=== PATIENT | male | born 1960 | race Caucasian/White ===

== ENCOUNTER 2022-01-03 14:08 | Observation (INO) ==
[2022-01-03] MEDS: NS 1,000 ML IV 1,000 ML IV SCH (16:35)
[2022-01-03] MEDS: NovoLIN R (or HumuLIN R) SC PRN ×2 (16:36→21:26)
[2022-01-03 16:45] LABS: BASOPHILS % (AUTO) 0.7 % (0.2-1.0); EOSINOPHILS # (AUTO) 0.1 x10^3/uL (0.0-0.2); HEMATOCRIT 44.4 % (42.0-54.0); HEMOGLOBIN 15.2 g/dL (13.5-18.0); LYMPHOCYTES # (AUTO) 1.8 X10^3/uL (1.3-2.9); LYMPHOCYTES % (AUTO) 26.6 % (21.0-51.0); MEAN CORPUSCULAR HEMOGLOBIN 30.7 pg (27.0-34.0); MEAN CORPUSCULAR HGB CONC 34.3 g/dL (33.0-35.0); MEAN CORPUSCULAR VOLUME 89.6 fL (80.0-100.0); MEAN PLATELET VOLUME 8.5 fL (7.4-11.0); MONOCYTES # (AUTO) 0.6 x10^3/uL (0.3-0.8); MONOCYTES % (AUTO) 9.4 % (0.0-13.0); NEUTROPHILS # (AUTO) 4.1 x10^3/uL (2.2-4.8); NEUTROPHILS % (AUTO) 62.3 % (42.0-75.0); RED BLOOD COUNT 4.95 X10^6/uL (4.7-6.0); RED CELL DISTRIBUTION WIDTH 13.7 % (11.6-16.5); WHITE BLOOD COUNT 6.6 X10^3/uL (3.6-10.0)
[2022-01-03 16:48] LABS: HEMOGLOBIN A1C 10.9 %
--- NOTE | 2022-01-03 17:08 | DR.H&P ---
H&P - History & Physical for Day of: H&P Date: 01/03/22 - Chief Complaint Chief Complaint: generalized weakness, uncontrolled DM - History of Present Illness History of Present Illness: Patient is a 61 year old male that is a direct admit from Dr. Marcelo's office secondary to generalized weakness and uncontrolled DM. Patient reports that he was discharged from [facility] last due to same complaints. Reports that he has been unable to control his BS at home. States that it ranges in the 400's. In office FSBS is noted to be 417. Denies recent falls but reports severe bilateral lower extremity weakness. States that BP has been stable. INR in office is 1.9. Will admit for further evaluation. - Past Medical History Past Medical History: Coronary Artery Disease, Diabetes, Dyslipidemia, GERD, Hypertension, Hypothyroidism - Past Surgical History Surgical History: Angioplasty/Stents - Family History Family Medical History: Coronary Artery Disease - Social History Alcohol Use: None Drug Use: None - Medications Home Medications: No Known Drug Allergies Allergy (Verified 01/03/22 16:16) - Review of Systems Constitutional: See HPI Eyes: See HPI ENT: See HPI Respiratory: See HPI Cardiovascular: Chest Pain Gastrointestinal: See HPI Genitourinary: See HPI Musculoskeletal: Other Skin: See HPI Neurological: Weakness - Physical Exam Vital Signs: Temperature 97.6 F Pulse Rate [Left Radial] 58 Respiratory Rate 20 Blood Pressure [Left Arm] 136/67 O2 Sat by Pulse Oximetry 96 Oriented: Normal Eyes: Normal Ear: Normal Nose: Normal Throat: Normal Respiratory: Clear Throughout Cardiovascular: Normal : Normal Auscultation: Bowel Sounds: Normal Palpation: Normal Tenderness: Normal Skin: Normal Musculoskeletal: Instability Psychiatric: Normal Mood Description: Calm Affect: Normal Speech Pattern: Clear - Assessment/Plan (1) General weakness Status: Acute (2) Diabetes Status: Acute - Allergies Allergies/Adverse Reactions: Allergies Allergy/AdvReac Type Severity Reaction Status Date / Time No Known Drug Allergies Allergy Verified 01/03/22 16:16
--- NOTE | 2022-01-03 17:43 | RAD ---
HISTORYUNCONTROLLED DM Relevant Clinical InformationSTUDYCHEST, 1 VIEWCOMPARISONNone.FINDINGSThe trachea is midline. The cardiac silhouette is enlarged without overt signs of failure. The lungs are clear without focal infiltrate, pneumothorax, or effusion. The bony thorax is unremarkable.IMPRESSIONNo acute cardiopulmonary findings .Electronically signed by: GOYO PORTER (Jan 03, 2022 17:42:14)
[2022-01-03 17:47] LABS: ALANINE AMINOTRANSFERASE 19 Units/L (12-78); ALBUMIN 3.4 g/dL (3.4-5.0); ALKALINE PHOSPHATASE 74 Units/L (46-116); ASPARTATE AMINO TRANSFERASE 8 Units/L (15-37); BLOOD UREA NITROGEN 24 mg/dL (7-18); CALCIUM 8.8 mg/dL (8.5-10.1); CARBON DIOXIDE 21.6 mmol/L (21-32); CHLORIDE 95 mmol/L (98-107); COR NA(FOR HYPERGLY) 139 mmol/L (136-145); CREATININE 1.65 mg/dL (0.70-1.30); FREE T4 (FREE THYROXINE) 1.36 ng/dL (0.76-1.46); SODIUM 133 mmol/L (136-145); TOTAL PROTEIN 6.8 g/dL (6.4-8.2); TSH (3RD GENERATION) 5.803 uIU/mL (0.358-3.74); eGFR NON BLACK RACES 45 (>60)
[2022-01-03 18:04] LABS: TOTAL PSA 3.04 ng/mL (0.13-4.0)
[2022-01-03] MEDS ORDERED: NITROSTAT ONE (19:19)
[2022-01-03] MEDS ORDERED: NITROSTAT SL PRN (19:32)
[2022-01-03 20:10] LABS: CKMB % 1.8 % (<4); CREATINE KINASE 55 Units/L (39-308); CREATINE KINASE MB < 1.0 ng/mL (0-4.0)
[2022-01-03 20:41] LABS: BILIRUBIN,URINE NEGATIVE (NEGATIVE); BLOOD/HEMOGLOBIN,URINE NEGATIVE (NEGATIVE); GLUCOSE, URINE 4+ (NEGATIVE); KETONES,URINE 4+ (NEGATIVE); LEUKOCYTE ESTERASE ,URINE NEGATIVE (NEGATIVE); NITRITES,URINE NEGATIVE (NEGATIVE); PROTEIN,URINE NEGATIVE (NEGATIVE); UROBILINOGEN,URINE NORMAL (NORMAL)
[2022-01-03 20:45] LABS: APPEARANCE,URINE CLEAR (CLEAR); COLOR,URINE YELLOW (YELLOW)
[2022-01-03] MEDS ORDERED: MAALOX or MYLANTA PO PRN (21:30)
[2022-01-04 02:01] LABS: CKMB % 1.8 % (<4); CREATINE KINASE 57 Units/L (39-308); CREATINE KINASE MB < 1.0 ng/mL (0-4.0)
[2022-01-04] MEDS: NS 1,000 ML IV 1,000 ML IV SCH ×2 (05:28→21:40)
[2022-01-04] MEDS: NovoLIN R (or HumuLIN R) SC PRN ×4 (05:55→16:34)
[2022-01-04 08:26] LABS: BASOPHILS # (AUTO) 0.1 X10^3/uL (0.0-0.1); BASOPHILS % (AUTO) 1.1 % (0.2-1.0); EOSINOPHILS # (AUTO) 0.1 x10^3/uL (0.0-0.2); EOSINOPHILS % (AUTO) 1.3 % (0.9-2.9); HEMATOCRIT 48.2 % (42.0-54.0); HEMOGLOBIN 16.5 g/dL (13.5-18.0); LYMPHOCYTES % (AUTO) 34.4 % (21.0-51.0); MEAN CORPUSCULAR HEMOGLOBIN 30.7 pg (27.0-34.0); MEAN CORPUSCULAR HGB CONC 34.3 g/dL (33.0-35.0); MEAN CORPUSCULAR VOLUME 89.5 fL (80.0-100.0); MEAN PLATELET VOLUME 7.5 fL (7.4-11.0); MONOCYTES # (AUTO) 0.7 x10^3/uL (0.3-0.8); MONOCYTES % (AUTO) 12.2 % (0.0-13.0); RED BLOOD COUNT 5.39 X10^6/uL (4.7-6.0); RED CELL DISTRIBUTION WIDTH 13.6 % (11.6-16.5); WHITE BLOOD COUNT 5.9 X10^3/uL (3.6-10.0)
[2022-01-04 08:53] LABS: ALANINE AMINOTRANSFERASE 21 Units/L (12-78); ALBUMIN 3.5 g/dL (3.4-5.0); ALKALINE PHOSPHATASE 74 Units/L (46-116); ASPARTATE AMINO TRANSFERASE 13 Units/L (15-37); BLOOD UREA NITROGEN 13 mg/dL (7-18); CALCIUM 8.5 mg/dL (8.5-10.1); CARBON DIOXIDE 25.7 mmol/L (21-32); CHLORIDE 94 mmol/L (98-107); CKMB % 1.6 % (<4); COR NA(FOR HYPERGLY) 137 mmol/L (136-145); CREATINE KINASE 62 Units/L (39-308); CREATINE KINASE MB < 1.0 ng/mL (0-4.0); CREATININE 1.36 mg/dL (0.70-1.30); SODIUM 133 mmol/L (136-145); TOTAL PROTEIN 7.2 g/dL (6.4-8.2); eGFR NON BLACK RACES 56 (>60)
[2022-01-04] MEDS ORDERED: ZESTRIL TAB 20 MG ONE (10:00)
[2022-01-04] MEDS: TRICOR TAB 145 MG PO SCH (10:06)
[2022-01-04] MEDS: RANEXA PO SCH ×2 (10:07→21:41)
[2022-01-04] MEDS: HYDROCHLOROTHIAZIDE 12.5 MG CAP PO SCH (10:07)
[2022-01-04] MEDS: ZESTRIL TAB 20 MG PO SCH (10:08)
[2022-01-04] MEDS: NEURONTIN TAB 600 MG PO SCH (10:08)
[2022-01-04] MEDS: CLARITIN PO SCH (10:08)
[2022-01-04] MEDS: MOBIC TAB 15 MG PO SCH (10:10)
[2022-01-04] MEDS: FLEXERIL TAB 10 MG PO SCH ×2 (10:11→21:41)
[2022-01-04] MEDS: SYNTHROID 100 mcg TAB PO SCH (10:11)
[2022-01-04] MEDS: CRESTOR TAB 10 MG PO SCH (10:36)
[2022-01-04] MEDS: LOPRESSOR TAB 25 MG PO SCH ×2 (10:37→17:39)
[2022-01-04] MEDS: PLAVIX PO SCH (10:37)
[2022-01-04] MEDS: NITRODUR PATCH 0.4 MG/HR TD SCH (10:37)
[2022-01-04] MEDS: ICOSAPENT ETHYL 1 GM PO SCH ×2 (10:38→21:40)
[2022-01-04 12:24] VITALS: BMI 35.6
[2022-01-04 14:22] LABS: ABG BASE EXCESS -0.4 mmol/L (-2.0-2.0); ABG HCO3 22.3 mmol/L (22-26)
[2022-01-04 14:23] LABS: ABG ALLEN TEST POS
[2022-01-04 16:40] LABS: ALANINE AMINOTRANSFERASE 17 Units/L (12-78); ALKALINE PHOSPHATASE 73 Units/L (46-116); ASPARTATE AMINO TRANSFERASE 9 Units/L (15-37); BLOOD UREA NITROGEN 12 mg/dL (7-18); CALCIUM 8.1 mg/dL (8.5-10.1); CARBON DIOXIDE 26.4 mmol/L (21-32); CHLORIDE 94 mmol/L (98-107); COR CA(FOR HYPOALB) 8.9 mg/dL (8.5-10.1); COR NA(FOR HYPERGLY) 137 mmol/L (136-145); CREATININE 1.35 mg/dL (0.70-1.30); SODIUM 131 mmol/L (136-145); TOTAL PROTEIN 6.2 g/dL (6.4-8.2); eGFR NON BLACK RACES 57 (>60)
[2022-01-04] MEDS ORDERED: LANTUS SC SCH (21:00)
[2022-01-05 06:10] LABS: BASOPHILS % (AUTO) 0.9 % (0.2-1.0); EOSINOPHILS # (AUTO) 0.1 x10^3/uL (0.0-0.2); EOSINOPHILS % (AUTO) 2.1 % (0.9-2.9); HEMATOCRIT 44.7 % (42.0-54.0); HEMOGLOBIN 15.5 g/dL (13.5-18.0); LYMPHOCYTES # (AUTO) 1.7 X10^3/uL (1.3-2.9); LYMPHOCYTES % (AUTO) 39.5 % (21.0-51.0); MEAN CORPUSCULAR HEMOGLOBIN 30.9 pg (27.0-34.0); MEAN CORPUSCULAR HGB CONC 34.6 g/dL (33.0-35.0); MEAN CORPUSCULAR VOLUME 89.2 fL (80.0-100.0); MEAN PLATELET VOLUME 7.5 fL (7.4-11.0); MONOCYTES # (AUTO) 0.7 x10^3/uL (0.3-0.8); MONOCYTES % (AUTO) 16.5 % (0.0-13.0); NEUTROPHILS # (AUTO) 1.7 x10^3/uL (2.2-4.8); RED BLOOD COUNT 5.01 X10^6/uL (4.7-6.0); RED CELL DISTRIBUTION WIDTH 13.5 % (11.6-16.5); WHITE BLOOD COUNT 4.2 X10^3/uL (3.6-10.0)
[2022-01-05] MEDS ORDERED: NovoLIN R (or HumuLIN R) ONE (06:18)
[2022-01-05 06:19] LABS: ALANINE AMINOTRANSFERASE 19 Units/L (12-78); ALBUMIN 3.1 g/dL (3.4-5.0); ALKALINE PHOSPHATASE 66 Units/L (46-116); ASPARTATE AMINO TRANSFERASE 16 Units/L (15-37); BLOOD UREA NITROGEN 11 mg/dL (7-18); CALCIUM 8.5 mg/dL (8.5-10.1); CARBON DIOXIDE 27.4 mmol/L (21-32); CHLORIDE 97 mmol/L (98-107); COR CA(FOR HYPOALB) 9.2 mg/dL (8.5-10.1); COR NA(FOR HYPERGLY) 137 mmol/L (136-145); CREATININE 1.22 mg/dL (0.70-1.30); SODIUM 135 mmol/L (136-145); TOTAL PROTEIN 6.4 g/dL (6.4-8.2); eGFR NON BLACK RACES > 60 (>60)
[2022-01-05] MEDS: NovoLIN R (or HumuLIN R) SUBCUT PRN ×2 (06:50→11:40)
[2022-01-05] MEDS ORDERED: ZESTRIL TAB 20 MG ONE (10:14)
[2022-01-05] MEDS: MOBIC TAB 15 MG PO SCH (10:31)
[2022-01-05] MEDS: RANEXA PO SCH (10:31)
[2022-01-05] MEDS: ZESTRIL TAB 20 MG PO SCH (10:31)
[2022-01-05] MEDS: CRESTOR TAB 10 MG PO SCH (10:32)
[2022-01-05] MEDS: LOPRESSOR TAB 25 MG PO SCH (10:32)
[2022-01-05] MEDS: PLAVIX PO SCH (10:32)
[2022-01-05] MEDS: FLEXERIL TAB 10 MG PO SCH (10:33)
[2022-01-05] MEDS: TRICOR TAB 145 MG PO SCH (10:35)
[2022-01-05] MEDS: NITRODUR PATCH 0.4 MG/HR TD SCH (10:36)
[2022-01-05] MEDS: CLARITIN PO SCH (10:36)
[2022-01-05] MEDS: NS 1,000 ML IV 1,000 ML IV SCH (10:36)
[2022-01-05] MEDS: SYNTHROID 100 mcg TAB PO SCH (10:37)
[2022-01-05] MEDS: HYDROCHLOROTHIAZIDE 12.5 MG CAP PO SCH (10:37)
[2022-01-05] MEDS: NEURONTIN TAB 600 MG PO SCH (10:38)
[2022-01-05] MEDS: ICOSAPENT ETHYL 1 GM PO SCH (10:38)
[2022-01-05 12:04] VITALS: BP 148/70
[2022-01-05] MEDS ORDERED: LOVAZA PO SCH (21:00)
--- NOTE | 2022-03-02 23:16 | PCM.DCPLAN ---
Discharge Plan - Discharge Plan Hospital Course: Admit date 01/03/22 Discharge date 01/05/22 DOS 01/05/22 Admit diagnosis Generalized weakness, Diabetes Discharge diagnosis1. Hyperglycemia with uncontrolled diabetes mellitus. 2. Hypertension. 3. Coronary artery disease. 4. Hypothyroidism. Hospital Course Mr. Oswald is a 61-year-old white male who was admitted from Dr. Peng Ingalls office with uncontrolled diabetes mellitus. The patient reports that he is on basal insulin, as well as mealtime insulin. One of his insulins, he is not sure of the name, it was expensive and he had ran out. The patients blood sugar has been running in the 300s. He is on a diabetic diet and we have resumed his home medications. He has a history of cardiac disease, as well as hyperthyroidism. The patients A1C was 10.9. His CO2 was normal, The patient did have an acetone breath smell, so we ordered a serum acetone and it was moderate. We ordered an ABG that was stable. We increased his fluids to normal saline at 100 mL x1 L and we decreased it back down to 75 mL with strict I&Os. The patient was also on sliding scale insulin coverage. He denies any chest pain or shortness of breath at this time. The patient states that he has occasional heartburn and indigestion, but no nausea or vomiting. He denies any other GI symptoms. The patients blood pressure was stable. We resumed his home medications. He reports that he just saw his enrollment processor, Dr. Olmedo last week. Patients labs normalized to baseline. Blood sugar was controlled. Imaging was unremarkable. Patient was discharged home and instructed to follow up with pcp in 1 week. Also instructed to keep good blood sugar ad blood pressure diary. Patient tolerating food and fluids. See discharge med rec for med details. PATIENT WAS SEEN AND EXAMINED BY DR DANIELSON ON THIS DATE. DOCUMENTING A SCRIBE. Discharge time spent >35 mins. Disposition: 01 HOME, SELF-CARE Condition: Stable Health Concerns: Post Hospitalization: new medications and changes needed to prevent readmission or further decline. Pt educated and given instructions on all concerns. Care Plan Goals: Problem: Pain/Alteration in Comfort Goal: Improve/ Resolve Pain; Achieve Pain Tolerance Instructions: Take pain medications as prescribed. Contact your primary care provider if your pain is unrelieved or worsens. Follow up with primary care provider as directed. Plan of Treatment: Continue with present treatment and follow up plan. Pt is to keep follow up appointment as instructed and take medications as ordered. Prescriptions: New Lantus U-100 Insulin 100 unit/mL Solution 70 unit SUBCUT QHS Qty: 1 RF: 0 Transmission Status: Received by [id number] Continued clonidine HCl 0.1 mg tablet 0.1 mg PO BID PRN clopidogrel 75 mg tablet 75 mg PO DAILY cyclobenzaprine 5 mg tablet 5 mg PO BID fenofibrate micronized 134 mg capsule 134 mg PO DAILY gabapentin 600 mg tablet 600 mg PO DAILY hydrochlorothiazide 12.5 mg tablet 12.5 mg PO DAILY icosapent ethyl 1 gram capsule 2 g PO BID insulin lispro 100 unit/mL solution 15 unit subcut TID Lantus Solostar U-100 Insulin 100 unit/mL (3 mL) insulin pen 60 unit SUBCUT HS levothyroxine 25 mcg tablet 25 mcg PO DAILY levothyroxine [Euthyrox] 200 mcg tablet 200 mcg PO DAILY lisinopril 20 mg tablet 20 mg PO DAILY loratadine 10 mg tablet 10 mg PO DAILY meloxicam 15 mg tablet 15 mg PO DAILY metoprolol tartrate 25 mg tablet 25 mg PO .9AM,5PM nitroglycerin 0.4 mg/hr patch 24 hour 1 patch transdermal DAILY ranolazine 1,000 mg tablet extended release 12 hr 1,000 mg PO BID rosuvastatin 40 mg tablet 40 mg PO DAILY - Orders to Discharge Patient Discharge Orders: Discharge (Routine); Ordered 01/05/22 Ordered By: GOYO DANIELSON - Follow ups/Referrals Follow ups/Referrals: GOYO DANIELSON [Primary Care Provider] - 01/11/22 1:00 pm - Instructions Instructions: Type 2 Diabetes Mellitus, Diagnosis, Adult, Insulin Treatment for Diabetes Mellitus, Diabetes Mellitus and Foot Care, Fatigue, Continuous Glucose Monitoring, Adult, Form - Daily Diabetes Record, Type 2 Diabetes Mellitus, Self- Care, Adult, [id number], Weakness, [id number], Diabetes Basics, Living With Diabetes, Weakness Forms: Excuse From Work or School, Precautions for COVID19, [facility], Patient Portal, Social Distancing Print Language: ROMANIAN
== END 2022-01-05 14:00 | disposition home or self-care (01) ==
LOC: EDBD → MED/SURG
PROVIDERS: ADMIT Internal Medicine; ATTEND Internal Medicine
DX: E11.65 Type 2 diabetes mellitus with hyperglycemia; I25.10 Atherosclerotic heart disease of native coronary artery without angina pectoris; K21.9 Gastro-esophageal reflux disease without esophagitis; I10 Essential (primary) hypertension; R79.1 Abnormal coagulation profile; Z20.822 Contact with and (suspected) exposure to COVID-19; E03.8 Other specified hypothyroidism; Z79.4 Long term (current) use of insulin; R53.1 Weakness; E78.2 Mixed hyperlipidemia; R94.31 Abnormal electrocardiogram [ECG] [EKG]